=== PATIENT | female | born 1960 ===

== ENCOUNTER 2022-08-22 08:00 | Day surgery (SDC) | payer OTHER ==
[~2022-08-22] VITALS: Ht 167.6 cm; Wt 86.2 kg
[~2022-08-22 08:00] MED LIST: ATORVASTATIN CA40 MG PO; DORZOLAMIDE HCL10 ML; LEXAP; NEXIUM40 M1 PO; SYNTHROID112 MCG PO; [UNRECOGNIZED DRUG - OTHER] PO
[2022-08-22] MEDS ORDERED: DERMOPLAST PAIN78 GM TOP (12:07)
[2022-08-22] MEDS ORDERED: ULTRACET PO (12:07)
== END 2022-08-22 19:35 | disposition home or self-care (01) ==
LOC: CIR.AMB 08:00
PROVIDERS: ATTEND Surgery
DX: Z85.048 Personal history of other malignant neoplasm of rectum, rectosigmoid junction, and anus (principal); K57.30 Diverticulosis of large intestine without perforation or abscess without bleeding; R19.4 Change in bowel habit; Z20.822 Contact with and (suspected) exposure to COVID-19